=== PATIENT | female | born 1975 | race Caucasian/White ===

== ENCOUNTER → 2018-11-16 | Outpatient (REF) | payer MEDICAID, OTHER ==
[2018-11-16 19:45] LABS: BASO # 0.1 10^3/uL (0.0-0.2); BASO % 0.5 % (0.0-1.0); EOS # 0.3 10^3/uL (0.0-0.5); EOS % 2.3 % (0.0-3.0); HEMATOCRIT 41.7 % (36.0-47.0); LYMPH % 26.4 % (24.0-44.0); MEAN CORPUSCULAR HEMOGLOBIN 30.8 pg (27.0-33.0); MEAN CORPUSCULAR HGB CONC 33.6 g/dl (32.0-36.5); MEAN CORPUSCULAR VOLUME 91.9 fl (80.0-96.0); MONO # 0.6 10^3/uL (0.0-0.8); MONO % 5.1 % (0.0-5.0); NEUTROPHILS # 7.3 10^3/uL (1.5-8.5); NEUTROPHILS % 65.2 % (36.0-66.0); PLATELET COUNT, AUTOMATED 241 10^3/uL (150-450); RED BLOOD COUNT 4.54 10^6/uL (4.00-5.40); WHITE BLOOD COUNT 11.2 10^3/uL (4.0-10.0)
[2018-11-16 19:53] LABS: ALBUMIN 3.7 GM/DL (3.2-5.2); ALT/SGPT 33 U/L (12-78); BILIRUBIN,TOTAL 0.5 MG/DL (0.2-1.0); BLOOD UREA NITROGEN 9 MG/DL (7-18); CALCIUM LEVEL 8.8 MG/DL (8.5-10.1); CARBON DIOXIDE LEVEL 25 MEQ/L (21-32); CHLORIDE LEVEL 108 MEQ/L (98-107); CHOLESTEROL LEVEL 209 MG/DL (<200); CREATININE FOR GFR 0.75 MG/DL (0.55-1.30); FREE T4 0.88 NG/DL (0.76-1.46); GLOMERULAR FILTRATION RATE > 60.0 (>58); GLUCOSE, FASTING 86 MG/DL (70-100); HDL CHOLESTEROL 43 MG/DL (>40); LDL CHOLESTEROL 93 MG/DL (<100); NON-HDL-C 166 MG/DL; SODIUM LEVEL 141 MEQ/L (136-145); TOTAL PROTEIN 6.9 GM/DL (6.4-8.2); TRIGLYCERIDES LEVEL 363 MG/DL (<150)
[2018-11-16 19:55] LABS: TOTAL 25(OH) VITAMIN D 17.6 NG/ML (30.0-100.0)
[2018-11-16 19:57] LABS: HEMOGLOBIN A1c 4.9 %
[2018-11-19 00:06] LABS: Lyme Disease IgG/IgM Antibodie <0.91 ISR (0.00-0.90); Lyme Disease IgM Ab Quantitati <0.80 index (0.00-0.79)
== END ==
LOC: M LAB REF 18:35
PROVIDERS: ATTEND Family Medicine
DX: Z13.228 Encounter for screening for other metabolic disorders (principal)

== ENCOUNTER → 2018-12-14 | Outpatient (CLI) | payer OTHER ==
[~2018-12-14] MED LIST: E-Z-GAS II EFFERVESCENT PACKET (SODIUM BICARB./CITRIC ACID/SIMETHICONE) As Ordered ONE; E-Z-HD 98% w/w 340GM SUSP BTL As Ordered ONE; E-Z-PAQUE 96% w/w SUSP 176GM BTL As Ordered ONE
--- NOTE | 2018-12-14 18:50 | REP ---
Examination Requested: Esophagram Barium Swallow Reason For Exam/Comment: Dysphasia Esophagram: The procedure was performed GRACIELA Garcia, under the direct supervision of Dr. Avila. The images were reviewed with Dr. Avila. A single PA chest x-ray is submitted as a director chemistry film. The superior mediastinal structures are midline. The heart size is within normal limits. The lungs are clear. Liquid barium and gas producing granules were given in the erect position as well as liquid barium in the prone oblique position, in order to perform a double contrast esophagram examination. Oral and pharyngeal stages of the examination were unremarkable. Esophageal transport is efficient and there is no stricture, or mucosal ring noted. However, there is irregularity of the distal esophagus consistent with moderate esophagitis. There is a small hiatal hernia noted. Gastroesophageal reflux was not demonstrated throughout the course of the exam. Impression: 1. Irregularities of the distal esophagus consistent with moderate esophagitis. 2. Small hiatal hernia. 0.4 minutes of fluoroscopy time was utilized for this procedure. Some fluoroscopic images are performed with last image hold technology. These images require no additional radiation. Reviewed by GRACIELA Zabala 12/14/2018 02:45 P Electronically Signed by Amol Avila MD 12/14/2018 06:41 P
== END ==
LOC: M RAD 07:39
PROVIDERS: ATTEND Otolaryngology
DX: R13.10 Dysphagia, unspecified (principal)

== ENCOUNTER 2019-03-22 11:27 | Day surgery (SDC) | payer MEDICAID, OTHER ==
[~2019-03-22] VITALS: Ht 154.9 cm; Wt 97.1 kg
[~2019-03-22 11:27] MED LIST changes: +CLON-412 PO; -E-Z-GAS II EFFERVESCENT PACKET (SODIUM BICARB./CITRIC ACID/SIMETHICONE) As Ordered ONE; -E-Z-HD 98% w/w 340GM SUSP BTL As Ordered ONE; -E-Z-PAQUE 96% w/w SUSP 176GM BTL As Ordered ONE; +LISI10TA4 PO; +NS 1,000 ML IV ONE
[2019-03-22] MEDS ORDERED: fentaNYL 100 MCG/2 ML INJECTION (J3010) As Ordered ONE (11:38)
[2019-03-22] MEDS ORDERED: propofoL 500 MG/50 ML VIAL As Ordered ONE (11:38)
[2019-03-22] MEDS ORDERED: LIDOCAINE 2% INJ 100 MG/5 ML SDV (FOR ANES.) As Ordered ONE (11:41)
[2019-03-22] MEDS ORDERED: propofoL 200 MG/20 ML VIAL As Ordered ONE (13:44)
[2019-03-22] MEDS ORDERED: LABETALOL HCL 100 MG/20 ML VIAL As Ordered ONE (13:49)
[2019-03-22 14:25] VITALS: BP 189/107
--- NOTE | 2019-03-22 14:49 | ROOR ---
Patient Name: Lucina Iglesias Procedure Date: 03/22/2019 1:05 PM Date of : 1975 Age: 43 Room: [facility] Gender: Female Note Status: Finalized Procedure: Upper GI endoscopy Indications: Dysphagia, Heartburn Providers: Pete Gandhi MD Referring MD: Leonard PAGE MD Requesting Provider: Medicines: Monitored Anesthesia Care Complications: No immediate complications. Procedure: Pre-Anesthesia Assessment: - Prior to the procedure, a History and Physical was performed, and patient medications and allergies were reviewed. The patient is competent. The risks and benefits of the procedure and the sedation options and risks were discussed with the patient. All questions were answered and informed consent was obtained. Patient identification and proposed procedure were verified by the physician, the nurse and the anesthesiologist in the procedure room. Mental Status Examination: alert and oriented. Airway Examination: normal oropharyngeal airway and neck mobility. Respiratory Examination: clear to auscultation. CV Examination: normal. Prophylactic Antibiotics: The patient does not require prophylactic antibiotics. Prior Anticoagulants: The patient has taken no previous anticoagulant or antiplatelet agents. ASA Grade Assessment: II - A patient with mild systemic disease. After reviewing the risks and benefits, the patient was deemed in satisfactory condition to undergo the procedure. The anesthesia plan was to use monitored anesthesia care (MAC). Immediately prior to administration of medications, the patient was re-assessed for adequacy to receive sedatives. The heart rate, respiratory rate, oxygen saturations, blood pressure, adequacy of pulmonary ventilation, and response to care were monitored throughout the procedure. The physical status of the patient was re-assessed after the procedure. The Endoscope was introduced through the mouth, and advanced to the second part of duodenum. The upper GI endoscopy was accomplished without difficulty. The patient tolerated the procedure well. Findings: Mucosal changes including longitudinal furrows, small-caliber esophagus, white plaques and crepe paper esophagus were found in the middle third of the esophagus and in the lower third of the esophagus. Biopsies were obtained from the proximal and distal esophagus with cold forceps for histology of suspected eosinophilic esophagitis. Verification of patient identification for the specimen was done by the physician and nurse using the patient's name, date and medical record number. Estimated blood loss was minimal. LA Grade A (one or more mucosal breaks less than 5 mm, not extending between tops of 2 mucosal folds) esophagitis with no bleeding was found in the distal esophagus. The Z-line was regular and was found 36 cm from the incisors. Scattered mild inflammation characterized by erythema, friability and granularity was found in the gastric antrum. Biopsies were taken with a cold forceps for Helicobacter pylori testing. The duodenal bulb and second portion of the duodenum were normal. Impression: - Esophageal mucosal changes suspicious for eosinophilic esophagitis. Biopsied. - LA Grade A reflux esophagitis. - Z-line regular, 36 cm from the incisors. - Gastritis. Biopsied. - Normal duodenal bulb and second portion of the duodenum. Recommendation: - Patient has a contact number available for emergencies. The signs and symptoms of potential delayed complications were discussed with the patient. Return to normal activities tomorrow. Written discharge instructions were provided to the patient. - Resume previous diet. - Avoid the food allergens. Follow Six Food Elimination Diet ( Avoid -- milk, soy, eggs, wheat, peanuts/tree nuts, and seafood), until allergy testing is done. - Use Pepcid (famotidine) 20 mg PO BID for 6 weeks. - Follow an antireflux regimen. - Await pathology results. - Telephone GI clinic for pathology results in 2 weeks. - Return to primary care physician. Pete Gandhi MD Pete Gandhi MD 03/22/2019 2:48:29 PM Electronically signed by Pete Gandhi MD Number of Addenda: 0 Note Initiated On: 03/22/2019 1:05 PM Estimated Blood Loss: Estimated blood loss: none.
--- NOTE | 2019-03-22 14:52 | ROOR ---
Patient Name: Lucina Iglesias Procedure Date: 03/22/2019 1:06 PM Date of : 1975 Age: 43 Room: [facility] Gender: Female Note Status: Finalized Procedure: Colonoscopy Indications: Chronic diarrhea Providers: Pete Gandhi MD Referring MD: Leonard PAGE MD Requesting Provider: Medicines: Monitored Anesthesia Care Complications: No immediate complications. Procedure: Pre-Anesthesia Assessment: - Prior to the procedure, a History and Physical was performed, and patient medications and allergies were reviewed. The patient is competent. The risks and benefits of the procedure and the sedation options and risks were discussed with the patient. All questions were answered and informed consent was obtained. Patient identification and proposed procedure were verified by the physician, the nurse and the anesthesiologist in the procedure room. Mental Status Examination: normal. Airway Examination: normal oropharyngeal airway and neck mobility. Respiratory Examination: clear to auscultation. CV Examination: normal. Prophylactic Antibiotics: The patient does not require prophylactic antibiotics. Prior Anticoagulants: The patient has taken no previous anticoagulant or antiplatelet agents. ASA Grade Assessment: II - A patient with mild systemic disease. After reviewing the risks and benefits, the patient was deemed in satisfactory condition to undergo the procedure. The anesthesia plan was to use monitored anesthesia care (MAC). Immediately prior to administration of medications, the patient was re-assessed for adequacy to receive sedatives. The heart rate, respiratory rate, oxygen saturations, blood pressure, adequacy of pulmonary ventilation, and response to care were monitored throughout the procedure. The physical status of the patient was re-assessed after the procedure. The Colonoscope was introduced through the anus and advanced to the terminal ileum, with identification of the appendiceal orifice and IC valve. The colonoscopy was performed without difficulty. The patient tolerated the procedure well. The quality of the bowel preparation was good. The terminal ileum, ileocecal valve, appendiceal orifice, and rectum were photographed. Scope insertion time was 3 minutes. Scope withdrawal time was 9 minutes. The total duration of the procedure was 12 minutes. Findings: The perianal and digital rectal examinations were normal. The terminal ileum appeared normal. Normal mucosa was found in the entire colon. Biopsies for histology were taken with a cold forceps from the right colon, left colon, transverse colon and rectosigmoid colon for evaluation of microscopic colitis. Verification of patient identification for the specimen was done by the physician and nurse using the patient's name, date and medical record number. Estimated blood loss was minimal. The colon (entire examined portion) was significantly tortuous. Advancing the scope required using manual pressure and straightening and shortening the scope to obtain bowel loop reduction. Non-bleeding external and internal hemorrhoids were found during retroflexion. The hemorrhoids were small. Impression: - The examined portion of the ileum was normal. - Normal mucosa in the entire examined colon. Biopsied. - Tortuous colon. - Non-bleeding external and internal hemorrhoids. Recommendation: - Patient has a contact number available for emergencies. The signs and symptoms of potential delayed complications were discussed with the patient. Return to normal activities tomorrow. Written discharge instructions were provided to the patient. - High fiber diet. - Continue present medications. - Use fiber, for example Citrucel, Fibercon, Konsyl or Metamucil. - Await pathology results. - Repeat colonoscopy in 10 years for screening purposes. - Telephone [facility]CP clinic for pathology results in 2 weeks. - Return to primary care physician. Pete Gandhi MD Pete Gandhi MD 03/22/2019 2:51:33 PM Electronically signed by Pete Gandhi MD Number of Addenda: 0 Note Initiated On: 03/22/2019 1:06 PM Estimated Blood Loss: Estimated blood loss was minimal.
== END 2019-03-22 15:06 | disposition home or self-care (01) ==
LOC: M OPP 11:27
PROVIDERS: ATTEND Internal Medicine Gastroenterology
DX: K64.4 Residual hemorrhoidal skin tags (principal); K64.8 Other hemorrhoids; K63.5 Polyp of colon; Q43.8 Other specified congenital malformations of intestine; K52.9 Noninfective gastroenteritis and colitis, unspecified; K22.8 Other specified diseases of esophagus; K21.0 Gastro-esophageal reflux disease with esophagitis; K29.70 Gastritis, unspecified, without bleeding; R13.10 Dysphagia, unspecified; R12 Heartburn; Z79.899 Other long term (current) drug therapy; Z88.0 Allergy status to penicillin; Z88.6 Allergy status to analgesic agent; F17.210 Nicotine dependence, cigarettes, uncomplicated
CPT/HCPCS: 43239; 45380; 88305; J3010

== ENCOUNTER 2019-09-22 00:22 | Emergency (ER) | payer OTHER ==
[~2019-09-22] VITALS: Ht 154.9 cm; Wt 101.2 kg
[~2019-09-22 00:22] MED LIST changes: -NS 1,000 ML IV ONE
[2019-09-22 00:53] LABS: HEMATOCRIT 45.8 % (36.0-47.0); HEMOGLOBIN 15.7 g/dl (12.0-15.5); MEAN CORPUSCULAR HEMOGLOBIN 31.3 pg (27.0-33.0); MEAN CORPUSCULAR HGB CONC 34.3 g/dl (32.0-36.5); MEAN CORPUSCULAR VOLUME 91.2 fl (80.0-96.0); PLATELET COUNT, AUTOMATED 274 10^3/uL (150-450); RED BLOOD COUNT 5.02 10^6/uL (4.00-5.40)
[2019-09-22 01:14] LABS: ATYPICAL LYMPH 1 % (0-5); BASOPHILS 1 % (0-1); EOSINOPHILS 3 % (0-3); LYMPHOCYTES 37 % (16-44); MONOCYTES 6 % (0-5); NEUTROPHILS 52 % (28-66); PLATELET ESTIMATE NORMAL (NORMAL)
[2019-09-22 01:15] LABS: PLATELET CLUMPS SMALL AMT
[2019-09-22 01:18] LABS: BLOOD UREA NITROGEN 12 MG/DL (7-18); CALCIUM LEVEL 9.6 MG/DL (8.5-10.1); CARBON DIOXIDE LEVEL 27 MEQ/L (21-32); CHLORIDE LEVEL 105 MEQ/L (98-107); CREATININE FOR GFR 0.78 MG/DL (0.55-1.30); GLOMERULAR FILTRATION RATE > 60.0 (>58); GLUCOSE, FASTING 96 MG/DL (70-100); POTASSIUM SERUM 3.7 MEQ/L (3.5-5.1); SODIUM LEVEL 137 MEQ/L (136-145)
[2019-09-22 01:30] LABS: INR 0.94; PROTHROMBIN TIME 12.3 SECONDS (11.8-14.0)
[2019-09-22 01:31] LABS: PARTIAL THROMBOPLASTIN TIME 27.3 SECONDS (25.0-38.4)
[2019-09-22 01:35] LABS: HCG, SERUM QUALITATIVE NEGATIVE (NEGATIVE)
[2019-09-22 01:39] LABS: D-DIMER QUANT < 270 ng/ml (<500)
[2019-09-22] MEDS ORDERED: GI COCKTAIL 50ML BTL(HYOSCYAMINE/MAALOX/LIDOCAINE VISCOUS)(1:3:1) PO ONE (01:45)
[2019-09-22] MEDS ORDERED: lisinopriL 20 MG TAB PO ONE (02:15)
[2019-09-22 04:00] VITALS: BP 173/82
[2019-09-22] MEDS ORDERED: OMEP40CA97 PO (04:02)
[2019-09-22] MEDS ORDERED: SUCR1TA PO (04:02)
[2019-09-22] MEDS ORDERED: LISI-538 PO (04:02)
[2019-09-22] MEDS ORDERED: HYDR-3363 PO (04:02)
--- NOTE | 2019-09-22 08:19 | REP ---
Clinical: Acute chest pain . Comparison: 07/15/2013 . Findings: The mediastinum and cardiac silhouette are stable and within normal limits for portable technique. The lung avila are clear without acute consolidation, effusion, or pneumothorax. Skeletal structures are intact. Impression: No acute cardiopulmonary process appreciated. Electronically Signed by Joe Nelson MD 09/22/2019 08:11 A
--- NOTE | 2019-09-22 10:56 | ECGEPIP ---
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
--- NOTE | 2019-09-22 11:05 | ECGEPIP ---
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
== END 2019-09-22 04:28 | disposition home or self-care (01) ==
LOC: M ED 00:22
DX: I10 Essential (primary) hypertension (principal); Z88.0 Allergy status to penicillin; Z88.8 Allergy status to other drugs, medicaments and biological substances

== ENCOUNTER → 2021-09-06 | Outpatient (CLI) | payer OTHER ==
[~2021-09-06] MED LIST changes: +HYDR-3363 PO; +LISI10TA22 PO; -LISI10TA4 PO; +LISI20TA33 PO; +OMEP40CA4 PO; +SUCR1TA PO
== END ==
LOC: M WHC 14:00
PROVIDERS: ATTEND Nurse Practitioner Family
DX: N63.20 Unspecified lump in the left breast, unspecified quadrant (principal)
CPT/HCPCS: 77065; G0279

== ENCOUNTER → 2022-08-29 | Outpatient (REF) | payer OTHER ==
[2022-08-29 16:40] LABS: HEMOGLOBIN A1c 5.3 % (4.0-6.0)
[2022-08-29 17:02] LABS: ALBUMIN 3.2 G/DL (3.2-5.2); ALKALINE PHOSPHATASE 74 U/L (46-116); ALT/SGPT 52 U/L (7.0-40); AST/SGOT 33 U/L (<34); BILIRUBIN,DIRECT 0.2 MG/DL (<0.4); BILIRUBIN,TOTAL 0.6 MG/DL (0.3-1.2); BLOOD UREA NITROGEN 8 MG/DL (9-23); CALCIUM LEVEL 8.4 MG/DL (8.5-10.1); CARBON DIOXIDE LEVEL 25 MMOL/L (20-31); CHLORIDE LEVEL 107 MMOL/L (98-107); CHOLESTEROL LEVEL 177 MG/DL (<200); GLOMERULAR FILTRATION RATE > 60.0 (>58); GLUCOSE, FASTING 88 MG/DL (60-100); HDL CHOLESTEROL 42.1 MG/DL (>40); LDL CHOLESTEROL 85.9 MG/DL (<100); NON-HDL-C 134.9 MG/DL; SODIUM LEVEL 135 MMOL/L (136-145); THYROID STIMULATING HORMONE 2.987 uIU/ML (0.55-4.78); TOTAL 25(OH) VITAMIN D 31.8 NG/ML (20.0-100.0); TOTAL PROTEIN 6.3 G/DL (5.7-8.2); TRIGLYCERIDES LEVEL 245 MG/DL (<150)
== END ==
LOC: M LAB REF 13:45
PROVIDERS: ATTEND Nurse Practitioner Family
DX: I10 Essential (primary) hypertension (principal); E66.9 Obesity, unspecified; Z11.9 Encounter for screening for infectious and parasitic diseases, unspecified; R74.01 Elevation of levels of liver transaminase levels; E55.9 Vitamin D deficiency, unspecified

== ENCOUNTER → 2022-09-05 | Outpatient (REF) | payer OTHER | LOC: M LAB REF 16:20 | PROVIDERS: ATTEND Nurse Practitioner Family | DX: L28.2 Other prurigo (principal) ==

== ENCOUNTER → 2022-09-12 | Outpatient (CLI) | payer OTHER | LOC: M SOG 09:49 | PROVIDERS: ATTEND Orthopaedic Surgery | DX: M50.322 Other cervical disc degeneration at C5-C6 level (principal) ==

== ENCOUNTER → 2022-11-14 | Outpatient (CLI) | payer OTHER | LOC: M RAD 16:00 | PROVIDERS: ATTEND Nurse Practitioner Family | DX: M17.11 Unilateral primary osteoarthritis, right knee (principal); M25.461 Effusion, right knee; M25.561 Pain in right knee ==

== ENCOUNTER → 2022-11-15 | Outpatient (CLI) | payer OTHER | LOC: M WHC 12:34 | PROVIDERS: ATTEND Nurse Practitioner Family | DX: Z86.718 Personal history of other venous thrombosis and embolism (principal) ==

== ENCOUNTER → 2022-12-25 | Outpatient (CLI) | payer OTHER | LOC: M RAD 11:10 | PROVIDERS: ATTEND Orthopaedic Surgery | DX: M25.561 Pain in right knee (principal) ==

== ENCOUNTER → 2022-12-30 | Outpatient (REF) | payer OTHER ==
[2022-12-30 17:51] LABS: ALBUMIN 3.7 G/DL (3.2-5.2); BILIRUBIN,DIRECT 0.2 MG/DL (<0.4); BILIRUBIN,TOTAL 0.5 MG/DL (0.3-1.2); TOTAL PROTEIN 7.1 G/DL (5.7-8.2)
== END ==
LOC: M LAB REF 16:36
PROVIDERS: ATTEND Nurse Practitioner Family
DX: R74.01 Elevation of levels of liver transaminase levels (principal); E66.9 Obesity, unspecified; Z68.41 Body mass index [BMI] 40.0-44.9, adult

== ENCOUNTER 2023-04-02 10:33 | Emergency (ER) | payer OTHER ==
[~2023-04-02] VITALS: Ht 154.9 cm; Wt 98.8 kg
[2023-04-02] MEDS ORDERED: VITA200032 (10:51)
[2023-04-02] MEDS ORDERED: LISI20TA37 (10:51)
[2023-04-02 11:43] LABS: BASO # 0.1 10^3/uL (0.0-0.2); BASO % 0.4 % (0.0-1.0); EOS # 0.3 10^3/uL (0.0-0.5); EOS % 2.2 % (0.0-3.0); HEMOGLOBIN 15.1 g/dl (12.0-15.5); LYMPH # 3.3 10^3/uL (1.5-5.0); MEAN CORPUSCULAR HGB CONC 34.3 g/dl (32.0-36.5); MEAN CORPUSCULAR VOLUME 93.2 fl (80.0-96.0); MONO # 0.6 10^3/uL (0.0-0.8); MONO % 5.1 % (2.0-8.0); NEUTROPHILS # 7.2 10^3/uL (1.5-8.5); PLATELET COUNT, AUTOMATED 272 10^3/uL (150-450); RED BLOOD COUNT 4.72 10^6/uL (4.00-5.40); WHITE BLOOD COUNT 11.4 10^3/uL (4.0-10.0)
[2023-04-02 11:58] LABS: INR 1.04; PROTHROMBIN TIME 13.3 SECONDS (12.5-14.5)
[2023-04-02 11:59] LABS: PARTIAL THROMBOPLASTIN TIME 25.6 SECONDS (24.8-34.2)
[2023-04-02 12:23] LABS: BLOOD UREA NITROGEN 9 MG/DL (9-23); CALCIUM LEVEL 9.3 MG/DL (8.5-10.1); CARBON DIOXIDE LEVEL 27 MMOL/L (20-31); CHLORIDE LEVEL 106 MMOL/L (98-107); CREATININE FOR GFR 0.67 MG/DL (0.55-1.30); GLOMERULAR FILTRATION RATE > 60.0 (>58); GLUCOSE, FASTING 89 MG/DL (60-100); POTASSIUM SERUM 4.2 MMOL/L (3.5-5.1); SODIUM LEVEL 138 MMOL/L (136-145)
[2023-04-02] MEDS ORDERED: OXYMETAZOLINE 0.05% NASAL SPRAY (AFRIN) ONE (12:35)
[2023-04-02] MEDS ORDERED: hydrALAZINE 20MG/ML 1ML VIAL IV STA (12:44)
[2023-04-02] MEDS ORDERED: LORazepam 2 MG/ML 1ML VIAL IV STA (12:44)
[2023-04-02] MEDS ORDERED: METOPROLOL 5 MG/5 ML VIAL IV STA (13:33)
[2023-04-02] MEDS ORDERED: METOPROLOL TART 25 MG TABLET PO ONE (13:35)
[2023-04-02 13:43] VITALS: BP 187/90
[2023-04-02] MEDS ORDERED: METO1TAB87 PO (14:51)
[2023-04-02 15:03] VITALS: BP 163/89; TEMP 98.3; O2SAT 98
== END 2023-04-02 15:11 | disposition home or self-care (01) ==
LOC: M ED 10:33
DX: R04.0 Epistaxis (principal); I10 Essential (primary) hypertension; F17.200 Nicotine dependence, unspecified, uncomplicated; Z88.0 Allergy status to penicillin; Z88.8 Allergy status to other drugs, medicaments and biological substances
CPT/HCPCS: 80048; 85025; 85610; 85730; 93041; 94760; 96374; 96375; 99285; J0360; J2060

== ENCOUNTER → 2023-04-03 | Outpatient (REF) | payer OTHER ==
[~2023-04-03] MED LIST changes: +LISI20TA37; +METO1TAB87 PO; +VITA200032
[2023-04-04 13:12] LABS: CREATININE, URINE 132.7 MG/DL; MALB URINE SIEMENS < 3.0 MG/L; MAU/CREAT RATIO 2.2 MCG/MG (0.0-30.0)
== END ==
LOC: M LAB REF 12:14
PROVIDERS: ATTEND Nurse Practitioner Family
DX: I10 Essential (primary) hypertension (principal)

== ENCOUNTER → 2023-10-21 | Outpatient (REF) | payer OTHER | LOC: M LAB REF 11:34 | PROVIDERS: ATTEND Nurse Practitioner Family | DX: Z12.4 Encounter for screening for malignant neoplasm of cervix (principal) ==

== ENCOUNTER → 2024-04-12 | Outpatient (REF) | payer OTHER ==
[2024-04-12 19:20] LABS: BASO # 0.1 10^3/uL (0.0-0.2); BASO % 0.5 % (0.0-1.0); EOS # 0.2 10^3/uL (0.0-0.5); EOS % 2.2 % (0.0-3.0); HEMOGLOBIN 14.2 g/dl (12.0-15.5); LYMPH # 2.7 10^3/uL (1.5-5.0); LYMPH % 25.6 % (24.0-44.0); MEAN CORPUSCULAR HEMOGLOBIN 30.5 pg (27.0-33.0); MEAN CORPUSCULAR VOLUME 92.5 fl (80.0-96.0); MONO # 0.6 10^3/uL (0.0-0.8); MONO % 5.6 % (2.0-8.0); NEUTROPHILS # 6.9 10^3/uL (1.5-8.5); NEUTROPHILS % 65.1 % (36.0-66.0); PLATELET COUNT, AUTOMATED 343 10^3/uL (150-450); RED BLOOD COUNT 4.65 10^6/uL (4.00-5.40); WHITE BLOOD COUNT 10.6 10^3/uL (4.0-10.0)
[2024-04-12 19:21] LABS: ALBUMIN 3.7 G/DL (3.2-5.2); ALKALINE PHOSPHATASE 76 U/L (35-104); ALT/SGPT 27 U/L (7.0-40); AST/SGOT 17 U/L (<34); BILIRUBIN,DIRECT 0.1 MG/DL (<0.4); BILIRUBIN,TOTAL 0.4 MG/DL (0.3-1.2); BLOOD UREA NITROGEN 12 MG/DL (9-23); CALCIUM LEVEL 8.8 MG/DL (8.5-10.1); CARBON DIOXIDE LEVEL 28 MMOL/L (20-31); CHLORIDE LEVEL 107 MMOL/L (98-107); CHOLESTEROL LEVEL 209 MG/DL (<200); CHOLESTEROL RISK RATIO 4.91 (<5); CREATININE FOR GFR 0.66 MG/DL (0.55-1.30); GLOMERULAR FILTRATION RATE > 60.0 (>58); GLUCOSE, FASTING 81 MG/DL (60-100); HDL CHOLESTEROL 42.5 MG/DL (>40); LDL CHOLESTEROL 107.5 MG/DL (<100); NON-HDL-C 166.5 MG/DL; POTASSIUM SERUM 4.6 MMOL/L (3.5-5.1); SODIUM LEVEL 141 MMOL/L (136-145); TOTAL PROTEIN 7.3 G/DL (5.7-8.2); TRIGLYCERIDES LEVEL 295 MG/DL (<150)
[2024-04-12 19:27] LABS: THYROID STIMULATING HORMONE 1.187 uIU/ML (0.55-4.78)
[2024-04-12 19:28] LABS: TOTAL 25(OH) VITAMIN D 21.1 NG/ML (20.0-100.0)
== END ==
LOC: M LAB REF 16:42
PROVIDERS: ATTEND Nurse Practitioner Family
DX: I10 Essential (primary) hypertension (principal); E66.9 Obesity, unspecified; E78.2 Mixed hyperlipidemia; F41.8 Other specified anxiety disorders